=== PATIENT | female | born 1990 | race Two or more races ===

== ENCOUNTER 2025-01-26 14:26 | Emergency (ER) | payer SELFPAY ==
[~2025-01-26] VITALS: Ht 177.8 cm; Wt 73.0 kg
[2025-01-26 15:09] VITALS: BP 125/66; PULSE 105; RESP 16; TEMP 98.7; O2SAT 97
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
[2025-01-26] MEDS ORDERED: METH-1182 PO (16:01)
[2025-01-26] MEDS ORDERED: IBUP-1456 PO (16:01)
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
== END 2025-01-26 16:04 | disposition home or self-care (01) ==
LOC: ER 14:26 → EDBD 14:26 → ER 16:04
DX: S16.1XXA Strain of muscle, fascia and tendon at neck level, initial encounter (principal); V43.52XA Car driver injured in collision with other type car in traffic accident, initial encounter; Y93.89 Activity, other specified; Y92.488 Other paved roadways as the place of occurrence of the external cause; Y99.8 Other external cause status
CPT/HCPCS: 72040